=== PATIENT | male | born 1955 | race Caucasian/White ===

== ENCOUNTER 2021-04-03 09:54 | Inpatient (IN) | payer MEDICARE, OTHER ==
[~2021-04-03] VITALS: Ht 175.3 cm; Wt 88.0 kg
[~2021-04-03 09:54] MED LIST: IBUPROFEN400 MG PO
[2021-04-03 10:32] LABS: BASOPHIL 0.1 % (0-2); EOSINOPHIL 0 % (0-7); HCT 40.9 % (42.0-52.0); LYMPHOCYTE 41.1 % (15-48); MCH 29.9 pg (25.0-31.0); MCHC 34.2 g/dL (32.0-36.0); MCV 87.4 fL (78.0-100.0); MONOCYTE 3.6 % (0-12); MPV 10.3 fL (6.0-9.5); NEUTROPHIL 54.7 % (41-80); NRBC 0; PLT 161 K/uL (150-400); RBC 4.68 M/uL (4.70-6.00); RDW 13.9 % (11.5-14.0); WBC 15.2 K/uL (4.0-10.5)
[2021-04-03 10:48] LABS: INR 1.17 (0.9-1.2); PROTHROMBIN TIME 14.3 SECONDS (11.8-13.4); PTT 52.2 SECONDS (24.4-34.7)
[2021-04-03 10:49] LABS: D-DIMER 0.75 ug/mLFEU (0.00-0.41)
[2021-04-03 11:18] LABS: BILIRUBIN NEGATIVE (NEGATIVE); BLOOD TRACE-INTACT Ery/uL (NEGATIVE); CLARITY CLEAR (CLEAR); COLOR YELLOW (YELLOW); GLUCOSE (U) NORMAL (NORMAL); LEUKOCYTES NEGATIVE Leu/uL (NEGATIVE); NITRITE NEGATIVE (NEGATIVE); PROTEIN 2+ mg/dL (NEGATIVE); SPECIFIC GRAVITY >=1.030 (1.001-1.030); UROBILINOGEN 0.2 mg/dL (0.2-1.0)
[2021-04-03 11:22] LABS: ALBUMIN 3.1 g/dL (3.4-5.0); ALKALINE PHOSHATASE 134 U/L (46-116); ALT 50 U/L (16-63); AST 61 U/L (15-37); BILIRUBIN - TOTAL 0.6 mg/dL (0.2-1.0); BUN 25 mg/dL (7-18); BUN/CREAT RATIO (CALC) 20.5 RATIO; C-REACTIVE PROTEIN >18.00 mg/dL (<=0.90); CHLORIDE 97 mmol/L (98-107); CO2 (BICARBONATE) 22 mmol/L (21-32); CREATININE 1.22 mg/dL (0.67-1.17); GLOBULIN (CALCULATION) 4.1 g/dL; GLUCOSE 137 mg/dL (74-106); LDH 395 U/L (85-227); POTASSIUM 3.7 mmol/L (3.5-5.1); TOTAL PROTEIN 7.2 g/dL (6.4-8.2)
[2021-04-03 11:37] LABS: BACTERIA TRACE; URINARY RBC RARE
[2021-04-03 11:38] LABS: MUCOUS TRACE
[2021-04-03 11:41] LABS: LACTIC ACID 1.5 mmol/L (0.4-1.9)
[2021-04-03] MEDS ORDERED: CRESTOR5 MG PO (12:53)
[2021-04-03] MEDS ORDERED: SLEEP AID25 M2 PO (16:54)
[2021-04-05 04:33] LABS: BASOPHIL 0.1 % (0-2); EOSINOPHIL 0 % (0-7); HCT 40.7 % (42.0-52.0); HGB 13.4 g/dl (13.2-18.0); LYMPHOCYTE 52.2 % (15-48); MCH 29.2 pg (25.0-31.0); MCHC 32.9 g/dL (32.0-36.0); MCV 88.7 fL (78.0-100.0); MONOCYTE 12.5 % (0-12); NRBC 0; PLT 263 K/uL (150-400); RBC 4.59 M/uL (4.70-6.00); WBC 15.6 K/uL (4.0-10.5)
[2021-04-05 04:38] LABS: NEUTROPHIL 34.6 % (41-80)
[2021-04-05 05:01] LABS: ALBUMIN 2.8 g/dL (3.4-5.0); BILIRUBIN - TOTAL 0.4 mg/dL (0.2-1.0); CREATININE 0.97 mg/dL (0.67-1.17); POTASSIUM 3.7 mmol/L (3.5-5.1); TOTAL PROTEIN 7.8 g/dL (6.4-8.2)
--- NOTE | 2021-04-05 15:29 | NUR ---
04/05/21 Per telephone conversation with Ms. Herrera. Mr. Herrera lives at home with his spouse. He was independent in the home and community prior to admission. He does not use any DME. - Ms. Herrera chose [facility] for 02 if needed at discahrge.
[2021-04-06 06:53] LABS: BASOPHIL 0.2 % (0-2); EOSINOPHIL 0 % (0-7); HCT 38.5 % (42.0-52.0); LYMPHOCYTE 42.4 % (15-48); MCH 29.8 pg (25.0-31.0); MCHC 33.8 g/dL (32.0-36.0); MCV 88.3 fL (78.0-100.0); MPV 9.7 fL (6.0-9.5); NEUTROPHIL 40.4 % (41-80); NRBC 0; PLT 299 K/uL (150-400); RBC 4.36 M/uL (4.70-6.00); WBC 16.8 K/uL (4.0-10.5)
[2021-04-06 07:57] LABS: ALBUMIN 2.6 g/dL (3.4-5.0); BILIRUBIN - TOTAL 0.5 mg/dL (0.2-1.0); BUN/CREAT RATIO (CALC) 35.7 RATIO; CREATININE 0.84 mg/dL (0.67-1.17); GLOBULIN (CALCULATION) 4.6 g/dL; POTASSIUM 3.7 mmol/L (3.5-5.1); TOTAL PROTEIN 7.2 g/dL (6.4-8.2)
--- NOTE | 2021-04-08 10:13 | NUR ---
ATTEMPTED PHONE CALL WITH SPOUSE AT THIS TIME, NO ANSWER, NO VOICEMAIL
[2021-04-09 06:02] LABS: BASOPHIL 0.5 % (0-2); EOSINOPHIL 0.6 % (0-7); HCT 39.9 % (42.0-52.0); HGB 13.4 g/dl (13.2-18.0); LYMPHOCYTE 36.9 % (15-48); MCH 29.9 pg (25.0-31.0); MCHC 33.6 g/dL (32.0-36.0); MCV 89.1 fL (78.0-100.0); MONOCYTE 13.4 % (0-12); MPV 10.1 fL (6.0-9.5); NRBC 0; PLT 356 K/uL (150-400); RBC 4.48 M/uL (4.70-6.00); RDW 14.1 % (11.5-14.0)
[2021-04-09 06:07] LABS: WBC 28.5 K/uL (4.0-10.5)
[2021-04-09 06:51] LABS: ALBUMIN 2.5 g/dL (3.4-5.0); BILIRUBIN - TOTAL 0.7 mg/dL (0.2-1.0); BUN/CREAT RATIO (CALC) 21.5 RATIO; CREATININE 0.93 mg/dL (0.67-1.17); GLOBULIN (CALCULATION) 4.5 g/dL; MAGNESIUM 2.3 mg/dL (1.8-2.4); POTASSIUM 4.3 mmol/L (3.5-5.1)
[2021-04-11 05:05] LABS: HCT 40.6 % (42.0-52.0); HGB 13.5 g/dl (13.2-18.0); MCH 29.5 pg (25.0-31.0); MCHC 33.3 g/dL (32.0-36.0); MCV 88.6 fL (78.0-100.0); MPV 10.3 fL (6.0-9.5); RBC 4.58 M/uL (4.70-6.00); RDW 13.7 % (11.5-14.0); WBC 26.4 K/uL (4.0-10.5)
[2021-04-11 06:04] LABS: BUN/CREAT RATIO (CALC) 22.5 RATIO; CREATININE 0.8 mg/dL (0.67-1.17); POTASSIUM 4.2 mmol/L (3.5-5.1)
[2021-04-12 05:46] LABS: HCT 41.6 % (42.0-52.0); HGB 13.8 g/dl (13.2-18.0); MCH 29.7 pg (25.0-31.0); MCHC 33.2 g/dL (32.0-36.0); MCV 89.5 fL (78.0-100.0); MPV 10.3 fL (6.0-9.5); RBC 4.65 M/uL (4.70-6.00); RDW 13.9 % (11.5-14.0)
[2021-04-12 05:56] LABS: WBC 27.9 K/uL (4.0-10.5)
[2021-04-12 06:11] LABS: ALBUMIN 2.6 g/dL (3.4-5.0); BILIRUBIN - TOTAL 0.6 mg/dL (0.2-1.0); CREATININE 0.87 mg/dL (0.67-1.17); GLOBULIN (CALCULATION) 4.8 g/dL; POTASSIUM 4.2 mmol/L (3.5-5.1); TOTAL PROTEIN 7.4 g/dL (6.4-8.2)
[2021-04-13 05:47] LABS: HCT 40.9 % (42.0-52.0); HGB 13.6 g/dl (13.2-18.0); MCH 29.7 pg (25.0-31.0); MCHC 33.3 g/dL (32.0-36.0); MCV 89.3 fL (78.0-100.0); MPV 9.9 fL (6.0-9.5); RBC 4.58 M/uL (4.70-6.00)
[2021-04-13 05:51] LABS: WBC 31.6 K/uL (4.0-10.5)
[2021-04-13 06:11] LABS: BUN/CREAT RATIO (CALC) 22.5 RATIO; CREATININE 0.8 mg/dL (0.67-1.17); POTASSIUM 4.3 mmol/L (3.5-5.1)
--- NOTE | 2021-04-13 15:02 | NUR ---
1300: PT VAPOTHERM DECREASED TO 35L 50% PT TOLERATING WELL, PLAN TO PLACE ON OXIMIZER IF PT CONTINUES TO IMPROVE.
--- NOTE | 2021-04-13 15:04 | NUR ---
1445: PT PLACED ON 6L OXIMIZER PER RT, 94% SPO2, ENCOURAGED PT TO CONTINUE USING ISB AND COUGHING UP ANY PHLEGM. PT VERBALIZED UNDERSTANDING.
--- NOTE | 2021-04-13 18:42 | NUR ---
1745: PT O2 DECREASED TO 5L ON OXIMIZER, PT TOLERATING WELL. PT CONTINUES TO REMAIN 92% OR ABOVE. PT IS MOTIVATED AND UNDERSTANDING OF POC AND GOALS.
[2021-04-15 06:32] LABS: BASOPHIL 0.4 % (0-2); EOSINOPHIL 0.8 % (0-7); HCT 42.2 % (42.0-52.0); HGB 13.9 g/dl (13.2-18.0); MCH 29.7 pg (25.0-31.0); MCHC 32.9 g/dL (32.0-36.0); MCV 90.2 fL (78.0-100.0); MONOCYTE 9.8 % (0-12); MPV 9.8 fL (6.0-9.5); NEUTROPHIL 37.9 % (41-80); NRBC 0; PLT 437 K/uL (150-400); RBC 4.68 M/uL (4.70-6.00); RDW 13.9 % (11.5-14.0); WBC 28.1 K/uL (4.0-10.5)
[2021-04-15 06:53] LABS: ALBUMIN 2.6 g/dL (3.4-5.0); BILIRUBIN - DIRECT 0.1 mg/dL (0.00-0.20); BILIRUBIN - TOTAL 0.5 mg/dL (0.2-1.0); BUN/CREAT RATIO (CALC) 18.6 RATIO; CREATININE 0.97 mg/dL (0.67-1.17); GLOBULIN (CALCULATION) 4.8 g/dL; POTASSIUM 4.2 mmol/L (3.5-5.1); TOTAL PROTEIN 7.4 g/dL (6.4-8.2)
[2021-04-15 07:18] LABS: LYMPHOCYTE 49.3 % (15-48)
[2021-04-15] MEDS ORDERED: ATROVENT HFA12.9 GM INH (10:37)
[2021-04-15] MEDS ORDERED: PROVENTIL INH (10:37)
--- NOTE | 2021-04-15 10:59 | NUR ---
SENT REQUEST FOR 5 L O2 TO IVAN AT [facility].
== END 2021-04-15 12:10 | disposition home or self-care (01) | DRG 177 ==
LOC: FER 09:54 → FTCU 12:05 → FMS 12:05 → FER 12:54 → FMS 14:33 → FTCU 04-04 13:21
PROVIDERS: Emergency Medicine; Hospitalist; Internal Medicine; ADMIT Family Medicine
PROC: 8E0ZXY6 Isolation (ICD-10-PCS; principal; 2021-04-03)
PROC: XW033E5 Introduction of Remdesivir Anti-infective into Peripheral Vein, Percutaneous Approach, New Technology Group 5 (ICD-10-PCS; 2021-04-03)
PROC: XW0DXM6 Introduction of Baricitinib into Mouth and Pharynx, External Approach, New Technology Group 6 (ICD-10-PCS; 2021-04-04)
PROC: 5A0955A Assistance with Respiratory Ventilation, Greater than 96 Consecutive Hours, High Flow/Velocity Cannula (ICD-10-PCS; 2021-04-06)
DX: U07.1 COVID-19 (principal); J12.82 Pneumonia due to coronavirus disease 2019; J96.01 Acute respiratory failure with hypoxia; A08.39 Other viral enteritis; G47.00 Insomnia, unspecified; N18.2 Chronic kidney disease, stage 2 (mild); E86.0 Dehydration; Z90.49 Acquired absence of other specified parts of digestive tract; Z80.42 Family history of malignant neoplasm of prostate; Z87.891 Personal history of nicotine dependence
CPT/HCPCS: 36415; 36600; 71045; 71275; 80048; 80053; 80076; 81001; 82728; 82803; 82962; 83036; 83605; 83615; 83735; 84484; 85025; 85379; 85610; 85730; 86140; 94010; 94640; 94664; 94760; 94762; C9399; J1100; J1650; J2060; J7030; J7050; J8540; Q9967; U0002